=== PATIENT | female | born 1935 | race Caucasian/White ===

== ENCOUNTER 2024-03-10 | Outpatient (REF) | payer OTHER, SELFPAY ==
[2024-03-11 23:06] LABS: CDiff Gene PCR POSITIVE (Negative)
[2024-03-11 23:07] LABS: CDIFF Internal ctrl Dots and bkg OK (V); CDiff Toxin Negative (Negative)
== END 2024-03-10 00:01 | disposition home or self-care (01) ==
LOC: HO.LNP
PROVIDERS: Visit Provider Internal Medicine Geriatric Medicine
DX: B82.9 Intestinal parasitism, unspecified (principal)
CPT/HCPCS: 87324; 87493

== ENCOUNTER 2024-03-12 07:40 | Outpatient (REF) | payer OTHER, SELFPAY ==
[2024-03-12 15:57] LABS: Adenovirus F 40/41 Not Detected (Not Detect.); Astrovirus Not Detected (Not Detect.); Campylobacter Not Detected (Not Detect.); Cryptosporidium Not Detected (Not Detect.); Cyclospora cayetanensis Not Detected (Not Detect.); E. coli EAEC Not Detected (Not Detect.); E. coli EPEC Not Detected (Not Detect.); E. coli ETEC Not Detected (Not Detect.); E. coli STEC Not Detected (Not Detect.); Entamoeba histolytica Not Detected (Not Detect.); Giardia lamblia Not Detected (Not Detect.); Norovirus GI/GII Not Detected (Not Detect.); Plesiomonas shigelloides Not Detected (Not Detect.); Rotavirus A Not Detected (Not Detect.); Salmonella Not Detected (Not Detect.); Sapovirus Not Detected (Not Detect.); Shigella sp./EIEC Not Detected (Not Detect.); Vibrio Not Detected (Not Detect.); Vibrio Cholerae Not Detected (Not Detect.); Yersinia enterocolitica Not Detected (Not Detect.)
== END 2024-03-12 07:41 | disposition home or self-care (01) ==
LOC: HO.HMGCLNP 07:40
PROVIDERS: Visit Provider Internal Medicine Geriatric Medicine
DX: B82.9 Intestinal parasitism, unspecified (principal); A04.72 Enterocolitis due to Clostridium difficile, not specified as recurrent
CPT/HCPCS: 87507